=== PATIENT | male | born 1960 | race Hispanic/Latino ===

== ENCOUNTER 2017-01-15 18:50 | Emergency (ER) | payer OTHER ==
[2017-01-15 18:50] VITALS: BMI 29.2
[2017-01-15 19:46] VITALS: BP 117/76; PULSE 74; RESP 16; TEMP 98.5; O2SAT 96
[2017-01-15 20:42] LABS: ADD MANUAL DIFF? NO
--- NOTE | 2017-01-15 20:42 | ED PDOC ---
Arrival/HPI - General Chief Complaint: Upper Extremity Problem/Injury Time Seen by Provider: 01/15/17 19:59 - History of Present Illness Narrative History of Present Illness (Text): 01/15/17 20:38 56yo male with 2 days duration L. elbow redness and swelling. States he usually leans on the elbow. States he has minimal pain with movement. Denies fever or chills. States he had similar occurrence on his knee. No other complaints. Past Medical History - Provider Review Nursing Documentation Reviewed: Yes - Infectious Disease Hx of Infectious Diseases: None - Tetanus Immunization Tetanus Immunization: Unknown - Past Medical History Past Medical History: No Previous - Cardiac Hx Cardiac Disorders: No - Pulmonary Hx Respiratory Disorders: No - Neurological Other/Comment: NEUROPATHY - HEENT Hx HEENT Disorder: No - Renal Hx Renal Disorder: No - Endocrine/Metabolic Hx Endocrine Disorders: No - Hematological/Oncological Hx Blood Disorders: No - Integumentary Hx Dermatological Disorder: No - Musculoskeletal/Rheumatological Hx Back Pain: Yes - Gastrointestinal Hx Gastrointestinal Disorders: Yes Hx Gall Bladder Disease: Yes - Genitourinary/Gynecological Hx Genitourinary Disorders: No - Psychiatric Hx Depression: Yes Hx Substance Use: No - Surgical History Hx Cholecystectomy: Yes - Anesthesia Hx Anesthesia: No Hx Anesthesia Reactions: No Hx Malignant Hyperthermia: No - Suicidal Assessment Feels Threatened In Home Enviroment: No Family/Social History Family/Social History: Unknown Family HX Smoking Status: Never Smoked Hx Alcohol Use: No Hx Substance Use: No Hx Substance Use Treatment: No Allergies/Home Meds Allergies/Adverse Reactions: Allergies No Known Allergies Allergy (Verified 01/15/17 19:40) Home Medications: Home Meds Medication Instructions Recorded Confirmed Escitalopram [Lexapro] 10 mg PO DAILY 06/23/14 01/15/17 Pregabalin [Lyrica] 200 mg PO BID 01/15/17 01/15/17 Physical Exam - Physical Exam Narrative Physical Exam (Text): 01/15/17 20:42 - Review of Systems Constitutional: Normal. absent: Fatigue, Weight Change, Fevers Eyes: Normal ENT: denies sore throat, denies tristhmus Respiratory: Normal. absent: SOB, Cough, Sputum Cardiovascular: absent: Chest Pain, Palpitations, Syncope Gastrointestinal: Normal. absent: Abdominal Pain, Diarrhea, Nausea, Vomiting Genitourinary: Normal. absent: Dysuria, Frequency, Hematuria, vaginal bleeding Musculoskeletal: elbow pain. absent: Back Pain, Neck Pain Skin: no rashes, no erythema Neurological: absent: Focal Weakness Endocrine: Normal Hemo/Lymphatic: Normal Psychiatric: No suicidal or homicidal ideations Physical exam Patient appears age appropriate in no distress, speaking full sentences without difficulty - Systems Exam Head: Present: Atraumatic, Normocephalic Pupils: Present: PERRL Extroacular Muscles: Present: EOMI Conjunctiva: Present: Normal Mouth: Present: Moist Mucous Membranes Neck: Present: Normal Range of Motion. No: MIDLINE TENDERNESS, Paraspinal Tenderness Respiratory/Chest: Present: Clear to Auscultation, Good Air Exchange. No: Respiratory Distress, Accessory Muscle Use, Tachypneic Cardiovascular: Present: Regular Rate and Rhythm, Normal S1, S2, Peripheal Pulses Present. No: Murmurs Abdomen: Present: Normal Bowel Sounds. No: Tenderness, Distention, Peritoneal Signs, Rebound, Guarding Back: Present: Normal Inspection. No: Midline Tenderness, Paraspinal Tenderness Upper Extremity: Present: L. elbow with swelling and some fluctuance. Erythema noted. Minimal tenderness to palpation. Full active and passive ROM. Distal neurovascular fully intact. No streaking. No: Cyanosis Lower Extremity: Present: Normal Inspection. No: Edema Neurological: Present: GCS=15, Speech Normal, cranial nerves II through XII fully intact with no cerebellar abnormality, neurosensory fully intact. No focal neurological deficits. Skin: Present: Warm, Dry, Normal Color. No: Rashes Lymphatic: Present: OX3, NI, NC Psychiatric: Present: Alert, Oriented x 3, Normal Insight, Normal Concentration Vital Signs Reviewed: Yes Vital Signs Temp Pulse Resp BP Pulse Ox 01/15/17 19:41 98.5 F 74 16 117/76 96 Temperature: Afebrile Blood Pressure: Normal Pulse: Regular Respiratory Rate: Normal Appearance: Positive for: Well-Appearing Pain Distress: None Mental Status: Positive for: Alert and Oriented X 3 Medical Decision Making ED Course and Treatment: 01/15/17 20:43 56-year-old male with 2 days' duration of left elbow swelling. Patient frequently leans on his elbow. Patient denies any fevers or chills. Patient's elbow has full active and passive range of motion, swelling and erythema noted. X-rays, labs, pain medications ordered Differential diagnosis includes but not limited to: Bursitis versus gout versus arthritis versus septic arthritis 01/15/17 21:43 elbow xray shows no acute kaykay abnormality. calcific buildup vs bursitis. interpreted by me. no leukocytosis, pt has full active and passive ROM. unlikely septic arthritis 01/15/17 22:07 pt asking to be dc'd home states he is already taking nsaids denies pain at this time pt states he will go see Dr. Garg this upcoming Thursday Pt states he understands to return to the ER right away for new or worsening symptoms or for inability to f/u with PMD or specialist as instructed. Patient states that he fully agrees with and understands discharge instructions. States that he agrees with the plan and disposition. Verbalized and repeated discharge instructions and plan. I have given the patient opportunity to ask any additional questions. - Lab Interpretations Lab Results: 01/15/17 20:30 01/15/17 20:30 Lab Results 01/15/17 20:30: Sodium 137, Potassium 3.9, Chloride 99, Carbon Dioxide 33, Anion Gap 9 L, BUN 14, Creatinine 1.0, Est GFR ( Amer) > 60, Est GFR (Non -Af Amer) > 60, Random Glucose 88, Calcium 9.2, Total Bilirubin 0.6, AST 44, ALT 64 H, Alkaline Phosphatase 64, Total Protein 7.5, Albumin 4.3, Globulin 3.3 , Albumin/Globulin Ratio 1.3 01/15/17 20:30: WBC 9.8, RBC 4.30, Hgb 13.1 L, Hct 39.1 L, MCV 90.9, MCH 30.5, MCHC 33.5, RDW 14.1, Plt Count 225, MPV 10.3, Gran % 74.6 H, Lymph % (Auto) 14.4 L, Phelps % (Auto) 7.8 H, Eos % (Auto) 3.0, Baso % (Auto) 0.2, Gran # 7.33 H , Lymph # 1.4, Phelps # 0.8 H, Eos # 0.3, Baso # 0.02, ESR 21 H - RAD Interpretation Radiology Orders: 01/15/17 20:00 ELBOW LEFT 3 VIEWS ROUTINE [RAD] Stat - Medication Orders Current Medication Orders: Discontinued Medications Ketorolac Tromethamine (Toradol) 30 mg IM STAT STA Stop: 01/15/17 20:00 Last Admin: 01/15/17 20:17 Dose: 30 mg Re-Assess: CRISTY Pain Assessment Document 01/15/17 21:17 CELESTE (Rec: 01/15/17 21:34 JO [id number]) Pain Reassessment Is this a pain reassessment? Yes Sleep Is patient sleeping during reassessment? No Presence of Pain Presence of Pain No Disposition/Present on Arrival - Present on Arrival Any Indicators Present on Arrival: No History of DVT/PE: No History of Uncontrolled Diabetes: No Urinary Catheter: No History of Decub. Ulcer: No History Surgical Site Infection Following: None - Disposition Have Diagnosis and Disposition been Completed?: Yes Diagnosis: Elbow swelling Disposition: HOME/ ROUTINE Disposition Time: 22:10 Patient Plan: Discharge Condition: GOOD Discharge Instructions (ExitCare): Swollen Joint (ED) Additional Instructions: PLEASE RETURN TO THE ER FOR PAIN IN THE ELBOW, WORSENING SWELLING, FEVERS, CHILLS, OR IF YOU CANNOT FOLLOW UP WITH DR. GARG EARLY NEXT WEEK. Referrals: Cheyenne Bhatt MD [Primary Care Provider] - Follow up with primary Fran Garg DO [Staff Provider] - Follow up with primary
[2017-01-15 20:52] LABS: BASO # 0.02 K/mm3 (0.0-2.0); BASO % 0.2 % (0.0-3.0); EOS # 0.3 (0.0-0.7); GRAN # 7.33 (1.4-6.5); GRAN % 74.6 % (50.0-68.0); HEMATOCRIT 39.1 % (42.0-52.0); LYMPH # 1.4 (1.2-3.4); LYMPH % 14.4 % (22.0-35.0); MEAN CELL VOLUME 90.9 fL (80.0-105.0); MEAN CORPUSCULAR HEMOGLOBIN 30.5 pg (25.0-35.0); MEAN CORPUSCULAR HGB CONC 33.5 g/dl (31.0-37.0); MEAN PLATELET VOLUME 10.3 fl (7.0-11.0); MONO # 0.8 (0.1-0.6); MONO % 7.8 % (1.0-6.0); PLATELET COUNT 225 10^3/uL (120.0-450.0); RED CELL DISTRIBUTION WIDTH 14.1 % (11.5-14.5); WHITE BLOOD COUNT 9.8 10^3/ul (4.5-11.0)
[2017-01-15 21:05] LABS: ALB/GLOB RATIO 1.3 (1.1-1.8); ALKALINE PHOSPHATASE 64 U/L (38-133); ALT/SGPT 64 U/L (7-56); AST/SGOT 44 U/L (15-59); BILIRUBIN,TOTAL 0.6 mg/dL (0.2-1.3); BLOOD UREA NITROGEN 14 mg/dL (7-21); CALCIUM 9.2 mg/dL (8.4-10.5); CARBON DIOXIDE 33 mmol/L (21-33); CHLORIDE 99 mmol/L (98-107); GFR AFRICAN-AMERICAN > 60; GLUCOSE,RANDOM 88 mg/dL (70-110); POTASSIUM 3.9 mmol/L (3.6-5.0); SODIUM 137 mmol/L (132-148); TOTAL PROTEIN 7.5 g/dL (5.8-8.3)
[2017-01-15 22:07] LABS: ERYTHROCYTE SEDIMENTATION RATE 21 mm/hr (0.00-15.0)
--- NOTE | 2017-01-16 09:40 | RAD ---
PROCEDURE: Radiographs of the left elbow. HISTORY: pain swelling COMPARISON: No prior. FINDINGS: BONES: Normal. No fracture. JOINTS: Normal. No osteoarthritis. SOFT TISSUES: Normal. JOINT EFFUSION: None. OTHER FINDINGS: None IMPRESSION: Unremarkable radiographs of the left elbow.
== END 2017-01-15 22:22 | disposition home or self-care (01) ==
LOC: ED 18:50
DX: M25.422 Effusion, left elbow (principal)
CPT/HCPCS: 73080; 80053; 85025; 85651; 86140; 87040; 96372; 99284; J1885

== ENCOUNTER 2017-09-09 18:08 | Emergency (ER) | payer OTHER ==
[2017-09-09 18:08] VITALS: BMI 29.2
[2017-09-09 18:29] VITALS: TEMP 97.6
--- NOTE | 2017-09-09 19:43 | ED PDOC ---
Arrival/HPI - General Chief Complaint: Lower Extremity Problem/Injury Time Seen by Provider: 09/09/17 18:30 Historian: Patient - History of Present Illness Narrative History of Present Illness (Text): 09/09/17 19:40 57yo male s/p left total knee surgery present with complaint of incision site redness, swelling, purulent discharge since this morning. He denies fever, chills, nausea, vomiting, any other complaint. Past Medical History - Provider Review Nursing Documentation Reviewed: Yes - Infectious Disease Hx of Infectious Diseases: None - Tetanus Immunization Tetanus Immunization: Unknown - Past Medical History Past Medical History: No Previous - Cardiac Hx Cardiac Disorders: No - Pulmonary Hx Respiratory Disorders: No - Neurological Other/Comment: NEUROPATHY - HEENT Hx HEENT Disorder: No - Renal Hx Renal Disorder: No - Endocrine/Metabolic Hx Endocrine Disorders: No - Hematological/Oncological Hx Blood Disorders: No - Integumentary Hx Dermatological Disorder: No - Musculoskeletal/Rheumatological Hx Back Pain: Yes - Gastrointestinal Hx Gastrointestinal Disorders: Yes Hx Gall Bladder Disease: Yes - Genitourinary/Gynecological Hx Genitourinary Disorders: No - Psychiatric Hx Depression: Yes Hx Substance Use: No - Surgical History Hx Cholecystectomy: Yes Hx Joint Replacement: Yes - Anesthesia Hx Anesthesia: No Hx Anesthesia Reactions: No Hx Malignant Hyperthermia: No - Suicidal Assessment Feels Threatened In Home Enviroment: No Family/Social History - Physician Review Nursing Documentation Reviewed: Yes Family/Social History: Unknown Family HX Smoking Status: Never Smoked Hx Alcohol Use: No Hx Substance Use: No Hx Substance Use Treatment: No Allergies/Home Meds Allergies/Adverse Reactions: Allergies No Known Allergies Allergy (Verified 09/09/17 18:29) Home Medications: Home Meds Medication Instructions Recorded Confirmed HYDROmorphone [Dilaudid] 8 mg PO BID 09/09/17 09/09/17 clonazePAM [clonAZEPAM] 1 mg PO DAILY PRN 09/09/17 09/09/17 Review of Systems - Physician Review All systems were reviewed & negative as marked: Yes - Review of Systems Constitutional: Normal Eyes: Normal ENT: Normal Respiratory: Normal Cardiovascular: Normal Gastrointestinal: Normal Genitourinary Male: Normal Musculoskeletal: Arthralgias (LEft knee pain/redness) Skin: Cellulitis (LEft knee) Neurological: Normal Endocrine: Normal Hemo/Lymphatic: Normal Psychiatric: Normal Physical Exam Vital Signs Reviewed: Yes Vital Signs Temp Pulse Resp BP Pulse Ox 09/09/17 18:19 97.6 F 84 18 117/79 98 Temperature: Afebrile Blood Pressure: Normal Pulse: Regular Respiratory Rate: Normal Appearance: Positive for: Well-Appearing, Non-Toxic, Comfortable Pain Distress: None Mental Status: Positive for: Alert and Oriented X 3 - Systems Exam Head: Present: Atraumatic, Normocephalic Pupils: Present: PERRL Extroacular Muscles: Present: EOMI Conjunctiva: Present: Normal Mouth: Present: Moist Mucous Membranes Neck: Present: Normal Range of Motion Respiratory/Chest: Present: Clear to Auscultation, Good Air Exchange. No: Respiratory Distress, Accessory Muscle Use Cardiovascular: Present: Regular Rate and Rhythm, Normal S1, S2. No: Murmurs Abdomen: Present: Normal Bowel Sounds. No: Tenderness, Distention, Peritoneal Signs Back: Present: Normal Inspection Upper Extremity: Present: Normal Inspection. No: Cyanosis, Edema Lower Extremity: Present: Tenderness (LEft knee), Swelling (LEft knee), Erythema (Focal area of erythema on the incision line), Temperature Abnormalties (LEft knee surrounding the incision on the knee). No: Edema, CALF TENDERNESS Neurological: Present: GCS=15, CN II-XII Intact, Speech Normal Skin: Present: Warm, Dry, Normal Color. No: Rashes Psychiatric: Present: Alert, Oriented x 3, Normal Insight, Normal Concentration Medical Decision Making ED Course and Treatment: 09/09/17 19:56 PT in Emergency department for states history. he was hemodynamically stable. Cellulitis of his left knee incision was noted. Case was DW Dr. Garg who did the knee replacement surgery He states that [place] [facility] [place] to go [place] [facility] [place]. He requested that pt go to Emergency department and he will see pt there. States he will call [place] [facility] [place] and let them know that he is coming. Patient was notified that [place] will be [place] [facility] he however declined transfer. States he still have errand to run and will rather go there on his own, when he is done with his errands. He understand the risks of sepsis and even that can occur. He is AAO x3 and able to make this decision. He signed out Leaving Against Medical Advice (AMA): The patient is choosing to leave against medical advice. I have personally explained to the patient that choosing to do so may result in permanent bodily harm or . I have discussed at great length that without further evaluation and monitoring there may be unforeseen circumstances and/or deterioration causing permanent bodily harm or as a result of their choice. The patient is alert, oriented, and shows the mental capacity to make clear decisions regarding the patients health care at this time. The patient continues to wish to leave against medical advice. In light of the patients decision to leave against medical advice, follow-up has been arranged and the patient is aware of the importance to following up as instructed. The patient has been advised that they should return to the emergency room immediately if they change their mind at any time, or if their condition begins to change or worsen in any way.. Disposition/Present on Arrival - Present on Arrival Any Indicators Present on Arrival: No History of DVT/PE: No History of Uncontrolled Diabetes: No Urinary Catheter: No History of Decub. Ulcer: No History Surgical Site Infection Following: None - Disposition Have Diagnosis and Disposition been Completed?: Yes Diagnosis: Infected incision Disposition: AGAINST MEDICAL ADVICE Disposition Time: 19:55 Condition: FAIR Referrals: Cheyenne Bhatt MD [Primary Care Provider] - Follow up with primary Forms: [employer] (Danish)
[2017-09-09 23:28] VITALS: BP 120/78; PULSE 82; RESP 16; O2SAT 99
== END 2017-09-09 19:54 | disposition left against medical advice (07) ==
LOC: ED 18:08
DX: L76.82 Other postprocedural complications of skin and subcutaneous tissue (principal); Y83.8 Other surgical procedures as the cause of abnormal reaction of the patient, or of later complication, without mention of misadventure at the time of the procedure; Y92.89 Other specified places as the place of occurrence of the external cause